=== PATIENT | female | born 1965 | race Caucasian/White ===

== ENCOUNTER → 2020-11-23 | Outpatient (CLI) | payer BC ==
[~2020-11-23] MED LIST: FLOMAX0.4 MG PO; KEFLEX CAP 500500 MG PO; LODINE CAP 300300 MG PO; LOMOTIL 2.5-0.1 EACH PO; PERCOCET 5/325 T1 EA PO; ZOFRAN 4 MG TAB4 MG PO
== END ==
LOC: EXRD 11:48
DX: M25.619 Stiffness of unspecified shoulder, not elsewhere classified (principal); M25.511 Pain in right shoulder; M19.011 Primary osteoarthritis, right shoulder
CPT/HCPCS: 73030

== ENCOUNTER → 2021-04-11 | Outpatient (CLI) | payer BC | LOC: EXRD 13:00 | DX: R22.1 Localized swelling, mass and lump, neck (principal); E04.1 Nontoxic single thyroid nodule | CPT/HCPCS: 76536 ==

== ENCOUNTER → 2021-06-12 | Outpatient (CLI) | payer BC ==
[~2021-06-12] VITALS: Ht 170.2 cm; Wt 81.6 kg
== END ==
LOC: OPSV 12:17
DX: R53.83 Other fatigue (principal); D50.9 Iron deficiency anemia, unspecified; E86.0 Dehydration; R25.2 Cramp and spasm; I95.1 Orthostatic hypotension
CPT/HCPCS: 96360; 96365; J1756

== ENCOUNTER → 2021-06-26 | Outpatient (CLI) | payer BC ==
[~2021-06-26] VITALS: Ht 170.2 cm; Wt 81.6 kg
== END ==
LOC: OPSV 06-14 13:00
DX: D50.9 Iron deficiency anemia, unspecified (principal); R53.83 Other fatigue; Z78.9 Other specified health status; I95.1 Orthostatic hypotension
CPT/HCPCS: 96365; J1756

== ENCOUNTER → 2021-07-03 | Outpatient (CLI) | payer BC ==
[~2021-07-03] VITALS: Ht 170.2 cm; Wt 81.6 kg
== END ==
LOC: OPSV 12:54
DX: D50.9 Iron deficiency anemia, unspecified (principal); R53.83 Other fatigue; Z78.9 Other specified health status; I95.1 Orthostatic hypotension
CPT/HCPCS: 96365; J1756

== ENCOUNTER → 2021-07-04 | Outpatient (CLI) | payer BC | LOC: RAD 09:15 | DX: D64.9 Anemia, unspecified (principal) | CPT/HCPCS: 74246; 74248 ==

== ENCOUNTER → 2021-07-10 | Outpatient (CLI) | payer BC ==
[~2021-07-10] VITALS: Ht 170.2 cm; Wt 81.6 kg
== END ==
LOC: OPSV 11:58
DX: D50.9 Iron deficiency anemia, unspecified (principal); R53.83 Other fatigue; I95.1 Orthostatic hypotension; Z78.9 Other specified health status
CPT/HCPCS: 96365; J1756

== ENCOUNTER → 2021-07-17 | Outpatient (CLI) | payer BC ==
[~2021-07-17] VITALS: Ht 170.2 cm; Wt 81.6 kg
== END ==
LOC: OPSV 12:00
DX: D50.9 Iron deficiency anemia, unspecified (principal); R53.83 Other fatigue; I95.1 Orthostatic hypotension; Z78.9 Other specified health status
CPT/HCPCS: 96365; J1756

== ENCOUNTER → 2021-07-24 | Outpatient (CLI) | payer BC ==
[~2021-07-24] VITALS: Ht 170.2 cm; Wt 81.6 kg
== END ==
LOC: OPSV 11:55
DX: R53.83 Other fatigue (principal); D50.9 Iron deficiency anemia, unspecified; I95.1 Orthostatic hypotension; Z78.9 Other specified health status
CPT/HCPCS: 96365; J1756

== ENCOUNTER → 2021-07-31 | Outpatient (CLI) | payer BC ==
[~2021-07-31] VITALS: Ht 170.2 cm; Wt 81.6 kg
== END ==
LOC: OPSV 12:00
DX: R53.83 Other fatigue (principal); R50.9 Fever, unspecified; Z78.9 Other specified health status; I95.1 Orthostatic hypotension
CPT/HCPCS: 96365; J1756

== ENCOUNTER → 2021-08-07 | Outpatient (CLI) | payer BC ==
[~2021-08-07] VITALS: Ht 170.2 cm; Wt 81.6 kg
== END ==
LOC: OPSV 11:59
DX: D50.9 Iron deficiency anemia, unspecified (principal); Z78.9 Other specified health status; I95.1 Orthostatic hypotension; R53.83 Other fatigue
CPT/HCPCS: 96365; J1756

== ENCOUNTER → 2021-08-14 | Outpatient (CLI) | payer BC ==
[~2021-08-14] VITALS: Ht 170.2 cm; Wt 81.6 kg
== END ==
LOC: OPSV 12:00
DX: D50.9 Iron deficiency anemia, unspecified (principal); R53.83 Other fatigue; I95.1 Orthostatic hypotension; Z78.9 Other specified health status
CPT/HCPCS: 96365; J1756

== ENCOUNTER → 2021-08-29 | Outpatient (CLI) | payer BC ==
[~2021-08-29] VITALS: Ht 170.2 cm; Wt 81.6 kg
== END ==
LOC: OPSV 11:36
DX: R53.83 Other fatigue (principal); D50.9 Iron deficiency anemia, unspecified; I95.1 Orthostatic hypotension; Z78.9 Other specified health status
CPT/HCPCS: 96365; J1756

== ENCOUNTER → 2021-09-12 | Outpatient (CLI) | payer BC ==
[~2021-09-12] VITALS: Ht 170.2 cm; Wt 81.6 kg
== END ==
LOC: OPSV 09-05 12:00
DX: D50.9 Iron deficiency anemia, unspecified (principal); R53.83 Other fatigue; I95.1 Orthostatic hypotension; Z78.9 Other specified health status
CPT/HCPCS: 96365; J1756

== ENCOUNTER → 2021-09-19 | Outpatient (CLI) | payer BC ==
[~2021-09-19] VITALS: Ht 170.2 cm; Wt 81.6 kg
== END ==
LOC: OPSV 12:01
DX: D50.9 Iron deficiency anemia, unspecified (principal); R53.83 Other fatigue; Z78.9 Other specified health status; I95.1 Orthostatic hypotension
CPT/HCPCS: 96365; J1756

== ENCOUNTER 2022-03-13 03:58 | Emergency (ER) | payer BC ==
[2022-03-13 05:22] LABS: HEMOGLOBIN 11.2 gm/dl (12.3-15.3); RED BLOOD COUNT 4.73 M/UL (4.00-5.10); WHITE BLOOD COUNT 5.5 K/UL (4.5-11.0)
[2022-03-13 06:05] LABS: BUN/CREATININE RATIO 16 (0-10)
== END 2022-03-13 13:40 | disposition home or self-care (01) ==
LOC: ER1 03:58
PROVIDERS: Physician Assistant
DX: K56.609 Unspecified intestinal obstruction, unspecified as to partial versus complete obstruction (principal); Z85.038 Personal history of other malignant neoplasm of large intestine; Z88.5 Allergy status to narcotic agent
CPT/HCPCS: 80053; 81001; 82150; 83605; 83690; 85025; 96374; 96375; 96376; 99284; J1170; J2270; J2405; Q9967